=== PATIENT | female | born 1945 | race Caucasian/White ===

== ENCOUNTER 2019-05-22 17:39 | Inpatient (IN) ==
[2019-05-22] MEDS ORDERED: 0.9 % Sodium Chloride 1,000 ML IVC ONE (17:50)
[2019-05-22] MEDS ORDERED: levoFLOXacin 250 MG TABLET PO ONE (17:50)
[2019-05-22] MEDS ORDERED: methylPREDNISolone 125 MG/2 ML VIAL IVP ONE (17:50)
[2019-05-22] MEDS ORDERED: Ipratropium/Albuterol Neb 3 ML IH ONE (17:50)
[2019-05-22 18:35] LABS: INR 1.3; Prothrombin Time 14.6 Seconds (9.4-12.1)
[2019-05-22 18:38] LABS: Activated Partial Thrombo Time 28.1 Seconds (26.0-36.0)
[2019-05-22 18:47] LABS: Troponin I < 0.03 ng/mL (< 0.04)
[2019-05-22 18:53] LABS: Basophils % 0.7 %; Eosinophils % 0.4 %; Hematocrit 33.1 % (35.3-44.9); Hemoglobin 10.7 g/dL (11.5-15.4); Immature Granulocytes % 1.5 % (0-4); Lymphocytes # 0.7 K/mcL (0.6-4.6); Lymphocytes % 25.8 %; Mean Corpuscular HGB Conc 32.3 g/dL (31.6-35.5); Mean Corpuscular Hemoglobin 30.2 pg (28.0-33.3); Mean Corpuscular Volume 93.5 fL (83.0-100.0); Monocytes # 0.3 K/mcL (0.0-1.3); Monocytes % 12.7 %; Neutrophils # 1.6 K/mcL (1.6-8.9); Red Blood Count 3.54 M/mcL (3.82-4.97); Red Cell Distribution Width 17.5 % (11.5-14.5); Segmented Neutrophils % 58.9 %; White Blood Count 2.7 K/mcL (4.3-11.1)
[2019-05-22 18:54] LABS: Platelet Count 78 K/mcL (140-400)
[2019-05-22 19:09] LABS: Alanine Aminotransferase 13 Units/L (7-52); Albumin 3.7 g/dL (3.5-5.7); Alkaline Phosphatase 38 Units/L (34-104); Aspartate Amino Transferase 17 Units/L (13-39); BUN/Creatinine Ratio 19 (6-26); Bilirubin,Direct 0.1 mg/dL (0.0-0.2); Bilirubin,Indirect 0.6 mg/dL (0.0-1.0); Bilirubin,Total 0.7 mg/dL (0.3-1.0); Blood Urea Nitrogen 33 mg/dL (8-23); Calcium 9.4 mg/dL (8.6-10.3); Carbon Dioxide 22 mEq/L (23-29); Chloride 95 mEq/L (98-107); Globulin 3.6 g/dL (2.4-3.5); Glucose 346 mg/dL (70-105); Osmolality,Calculated 291 (280-300); Potassium 4.3 mEq/L (3.5-5.1); Sodium 130 mEq/L (136-145); Total Protein 7.3 g/dL (6.4-8.9); eGFR For African Americans 35 (> 60); eGFR For Non-African Americans 29 (> 60)
[2019-05-22 19:13] LABS: Bilirubin,Urine Negative (Negative); Blood,Urine Moderate (Negative); Clarity,Urine Clear (Clear); Color,Urine Yellow (Yellow); Glucose,Urine (UA) 500 mg/dL (Normal); Ketones,Urine 15 mg/dL (Negative); Leukocyte Esterase,Urine Small (Negative); Nitrite,Urine Positive (Negative); PH,Urine 5.5 pH Units (5.0-8.0); Protein,Urine >=300 mg/dL (Neg-Trace); Specific Gravity,Urine 1.025 (1.010-1.025); Urobilinogen,Urine Normal (Normal)
[2019-05-22 19:25] LABS: WBC,Urine TNTC per hpf (0-3)
[2019-05-22 19:26] LABS: Bacteria,Urine Moderate per hpf (None-Few); RBC,Urine Present per hpf (0-3)
[2019-05-22] MEDS ORDERED: cefTRIAXone 2,000 MG in 0.9 % Sodium Chloride Mini Bag 100 ML IVPB ONE (19:33)
[2019-05-22] MEDS ORDERED: Ondansetron ODT 4 MG TAB.RAPDIS SL PRN (21:03)
[2019-05-22] MEDS ORDERED: Naloxone 0.4 MG/ML INJ IVP PRN (21:03)
[2019-05-22] MEDS ORDERED: Ondansetron 4 MG/2 ML VIAL IVP PRN (21:03)
[2019-05-22] MEDS ORDERED: D5% in Water 1,000 ML IVC PRN ×2 (21:03→23:09)
[2019-05-22] MEDS ORDERED: Albuterol 2.5 MG/3 ML NEBULIZER IH PRN (21:03)
[2019-05-22] MEDS ORDERED: MOM Conc 10 ML UD.LIQ PO PRN (21:03)
[2019-05-22] MEDS ORDERED: Mag Hydrox/Al Hydrox/Simeth 30 ML UDC PO PRN (21:03)
[2019-05-22] MEDS ORDERED: *HR* Dextrose 50 % in Water (Syg) 50 ML SYRINGE IVP PRN (21:03)
[2019-05-22] MEDS ORDERED: Dextrose Gel 15 GM/37.5 ML TUBE PO PRN ×4 (21:03→23:09)
[2019-05-22] MEDS: 0.9 % Sodium Chloride 1,000 ML IVC SCH (21:43)
[2019-05-22] MEDS: Ipratropium/Albuterol Neb 3 ML IH SCH (22:52)
[2019-05-22] MEDS: Insulin LISPRO 300 UNITS/3 ML VIAL SQ SCH (23:29)
[2019-05-22] MEDS ORDERED: Insulin DETEMIR 100 UNIT/ML per UNIT SQ ONE ×2 (23:30)
[2019-05-23] MEDS: Ipratropium/Albuterol Neb 3 ML IH SCH ×2 (03:56→10:48)
[2019-05-23] MEDS: 0.9 % Sodium Chloride 1,000 ML IVC SCH (05:48)
[2019-05-23] MEDS: Insulin LISPRO 300 UNITS/3 ML VIAL SQ SCH ×5 (08:28→20:02)
[2019-05-23] MEDS ORDERED: Ipratropium/Albuterol Neb 3 ML IH PRN (11:00)
[2019-05-23] MEDS ORDERED: *HR* Dextrose 50 % in Water (Vial) 50 ML VIAL IVP PRN (12:50)
[2019-05-23] MEDS ORDERED: tiZANidine 4 MG TABLET PO PRN (13:26)
[2019-05-23 16:36] LABS: Adenovirus F 40/41 PCR Not detected (Not detect); Astrovirus PCR Not detected (Not detect); Campylobacter by PCR Not detected (Not detect); Cryptosporidium by PCR Not detected (Not detect); Cyclospora cayetanensis PCR Not detected (Not detect); E. coli O157 by PCR Not detected (Not detect); Entamoeba histolytica PCR Not detected (Not detect); Enteroaggregative E.coli(EAEC) Not detected (Not detect); Enteropathogenic E.coli(EPEC) Not detected (Not detect); Enterotoxigenic E.coli (ETEC) Not detected (Not detect); Giardia lamblia PCR Not detected (Not detect); Norovirus GI/GII PCR Not detected (Not detect); Plesiomonas shigelloides PCR Not detected (Not detect); Rotavirus A PCR Not detected (Not detect); Salmonella PCR Not detected (Not detect); Sapovirus PCR Not detected (Not detect); Shig/EnteroinvasiveE coli EIEC Not detected (Not detect); Shigalike tox-prod E coli STEC Not detected (Not detect); Vibrio PCR Not detected (Not detect); Vibrio cholerae PCR Not detected (Not detect); Yersinia enterocolitica PCR Not detected (Not detect)
[2019-05-23 16:38] LABS: C.difficile Toxin A/B Gene PCR DETECTED (Not detect)
[2019-05-23] MEDS: *HR* Heparin 5,000 UNIT/ML VIAL SQ SCH ×2 (17:09→21:49)
[2019-05-23] MEDS: levoFLOXacin 500 MG/100 ML 500 MG/100 ML BAG IVPB SCH (17:10)
[2019-05-23] MEDS: Cholecalciferol (D-3) 1,000 UNIT (25MCG) TABLET PO SCH (17:10)
[2019-05-23] MEDS: REVLIMID 5 MG PO SCH (19:03)
[2019-05-23 19:05] LABS: Acinetobacter baumannii by PCR Not Detected (Not Detect); Candida albicans by PCR Not Detected (Not Detect); Candida glabrata by PCR Not Detected (Not Detect); Enterobacter cloacae Cmplx PCR Not Detected (Not Detect); Enterobacteriaceae by PCR DETECTED (Not Detect); Enterococcus by PCR Not Detected (Not Detect); Escherichia coli by PCR DETECTED (Not Detect); Klebsiella oxytoca by PCR Not Detected (Not Detect); Klebsiella pneumoniae by PCR Not Detected (Not Detect); Proteus by PCR Not Detected (Not Detect); Pseudomonas aeruginosa by PCR Not Detected (Not Detect); Serratia marcescens by PCR Not Detected (Not Detect); Staphylococcus aureus by PCR Not Detected (Not Detect); Staphylococcus by PCR Not Detected (Not Detect); Streptococcus agalactiae(B)PCR Not Detected (Not Detect); Streptococcus by PCR Not Detected (Not Detect); Streptococcus pneumoniae PCR Not Detected (Not Detect); Streptococcus pyogenes (A) PCR Not Detected (Not Detect); blaKPC Carbapenem-Resist Gene Not Detected (Not Detect)
[2019-05-23 19:06] LABS: Candida krusei by PCR Not Detected (Not Detect); Candida parapsilosis by PCR Not Detected (Not Detect); Candida tropicalis by PCR Not Detected (Not Detect)
[2019-05-23] MEDS: Insulin DETEMIR 100 UNIT/ML X5UNITS SQ SCH (20:02)
[2019-05-23] MEDS: Gabapentin 100 MG CAPSULE PO SCH (20:02)
[2019-05-23] MEDS ORDERED: INSULIN DEGLUDEC 38 UNIT SQ SCH (21:00)
[2019-05-23] MEDS ORDERED: Insulin DETEMIR 100 UNIT/ML X5UNITS SQ SCH (21:00)
[2019-05-23] MEDS: Vancomycin Oral Soln 125 MG/2.5 ML UDC PO SCH (21:49)
[2019-05-23] MEDS: Acetaminophen 325 MG TABLET PO PRN (23:11)
[2019-05-24] MEDS: *HR* Heparin 5,000 UNIT/ML VIAL SQ SCH ×3 (05:22→21:37)
[2019-05-24] MEDS: Insulin LISPRO 300 UNITS/3 ML VIAL SQ SCH ×7 (08:22→21:38)
[2019-05-24] MEDS: Vancomycin Oral Soln 125 MG/2.5 ML UDC PO SCH ×4 (08:22→21:36)
[2019-05-24] MEDS: Cholecalciferol (D-3) 1,000 UNIT (25MCG) TABLET PO SCH (08:22)
[2019-05-24 08:51] LABS: Eosinophils # 0.1 K/mcL (0.0-0.6); Hematocrit 31.9 % (35.3-44.9); Hemoglobin 10.4 g/dL (11.5-15.4); Lymphocytes # 0.6 K/mcL (0.6-4.6); Mean Corpuscular HGB Conc 32.6 g/dL (31.6-35.5); Mean Corpuscular Hemoglobin 29.8 pg (28.0-33.3); Mean Corpuscular Volume 91.4 fL (83.0-100.0); Red Blood Count 3.49 M/mcL (3.82-4.97); Red Cell Distribution Width 17.2 % (11.5-14.5); White Blood Count 2.9 K/mcL (4.3-11.1)
[2019-05-24 08:52] LABS: Platelet Count 72 K/mcL (140-400)
[2019-05-24] MEDS ORDERED: REVLIMID 5 MG PO SCH (09:00)
[2019-05-24 09:02] LABS: Calcium 9.2 mg/dL (8.6-10.3); Potassium 3.6 mEq/L (3.5-5.1)
[2019-05-24 09:13] LABS: Anisocytosis 1+ (Not Present); Dohle Bodies Present (Not Present); Monocytes # 0.4 K/mcL (0.0-1.3); Neutrophils # 1.7 K/mcL (1.6-8.9); Platelet Estimate Slight Decrease (Normal); Polychromasia 1+ (Not Present); Reactive Lymphocytes Present (Not Present); Toxic Granulation Present (Not Present); Toxic Vacuolation Present (Not Present)
[2019-05-24] MEDS: 0.9 % Sodium Chloride 1,000 ML IVC SCH ×2 (09:46→22:42)
[2019-05-24] MEDS: Insulin DETEMIR 100 UNIT/ML X5UNITS SQ SCH ×2 (12:07→21:43)
[2019-05-24] MEDS: REVLIMID 5 MG PO SCH (19:50)
[2019-05-24] MEDS: Gabapentin 100 MG CAPSULE PO SCH (21:37)
[2019-05-25] MEDS: *HR* Heparin 5,000 UNIT/ML VIAL SQ SCH ×3 (06:27→22:15)
[2019-05-25] MEDS: Insulin LISPRO 300 UNITS/3 ML VIAL SQ SCH ×7 (09:23→22:24)
[2019-05-25] MEDS: Acetaminophen 325 MG TABLET PO PRN (09:31)
[2019-05-25] MEDS: Cholecalciferol (D-3) 1,000 UNIT (25MCG) TABLET PO SCH (09:31)
[2019-05-25] MEDS: Vancomycin Oral Soln 125 MG/2.5 ML UDC PO SCH ×4 (09:31→22:12)
[2019-05-25] MEDS: Insulin DETEMIR 100 UNIT/ML X5UNITS SQ SCH ×2 (09:32→22:15)
[2019-05-25] MEDS: 0.9 % Sodium Chloride 1,000 ML IVC SCH (12:49)
[2019-05-25] MEDS: levoFLOXacin 500 MG/100 ML 500 MG/100 ML BAG IVPB SCH (15:43)
[2019-05-25] MEDS: REVLIMID 5 MG PO SCH (19:31)
[2019-05-25] MEDS: Gabapentin 100 MG CAPSULE PO SCH (22:14)
[2019-05-26] MEDS: *HR* Heparin 5,000 UNIT/ML VIAL SQ SCH (05:18)
[2019-05-26] MEDS: 0.9 % Sodium Chloride 1,000 ML IVC SCH (05:18)
[2019-05-26] MEDS: Vancomycin Oral Soln 125 MG/2.5 ML UDC PO SCH ×4 (09:26→20:43)
[2019-05-26] MEDS: Insulin DETEMIR 100 UNIT/ML X5UNITS SQ SCH ×2 (09:26→20:43)
[2019-05-26] MEDS: Cholecalciferol (D-3) 1,000 UNIT (25MCG) TABLET PO SCH (09:26)
[2019-05-26] MEDS: Insulin LISPRO 300 UNITS/3 ML VIAL SQ SCH ×7 (09:27→20:44)
[2019-05-26 12:53] LABS: BUN/Creatinine Ratio 14 (6-26); Blood Urea Nitrogen 14 mg/dL (8-23); Calcium 8.4 mg/dL (8.6-10.3); Carbon Dioxide 24 mEq/L (23-29); Chloride 107 mEq/L (98-107); Glucose 125 mg/dL (70-105); Osmolality,Calculated 288 (280-300); Potassium 3.6 mEq/L (3.5-5.1); Sodium 138 mEq/L (136-145); eGFR For African Americans > 60 (> 60); eGFR For Non-African Americans 57 (> 60)
[2019-05-26 13:18] LABS: Hematocrit 27.8 % (35.3-44.9); Hemoglobin 9.3 g/dL (11.5-15.4); Mean Corpuscular HGB Conc 33.5 g/dL (31.6-35.5); Mean Corpuscular Hemoglobin 30.2 pg (28.0-33.3); Mean Corpuscular Volume 90.3 fL (83.0-100.0); Red Blood Count 3.08 M/mcL (3.82-4.97); Red Cell Distribution Width 17.1 % (11.5-14.5); White Blood Count 2.2 K/mcL (4.3-11.1)
[2019-05-26 13:31] LABS: Platelet Count 55 K/mcL (140-400)
[2019-05-26] MEDS: REVLIMID 5 MG PO SCH (19:04)
[2019-05-26] MEDS: Gabapentin 100 MG CAPSULE PO SCH (20:41)
[2019-05-27 06:42] LABS: Hematocrit 26.3 % (35.3-44.9); Hemoglobin 8.6 g/dL (11.5-15.4); Mean Corpuscular HGB Conc 32.7 g/dL (31.6-35.5); Mean Corpuscular Volume 91.6 fL (83.0-100.0); Red Blood Count 2.87 M/mcL (3.82-4.97); Red Cell Distribution Width 17.1 % (11.5-14.5)
[2019-05-27 06:45] LABS: Platelet Count 42 K/mcL (140-400)
[2019-05-27] MEDS: Insulin LISPRO 300 UNITS/3 ML VIAL SQ SCH ×4 (09:12→12:27)
[2019-05-27] MEDS: Cholecalciferol (D-3) 1,000 UNIT (25MCG) TABLET PO SCH (09:20)
[2019-05-27] MEDS: Insulin DETEMIR 100 UNIT/ML X5UNITS SQ SCH (09:20)
[2019-05-27] MEDS: Vancomycin Oral Soln 125 MG/2.5 ML UDC PO SCH ×2 (09:20→12:28)
[2019-05-27 11:28] VITALS: BP 122/55
== END 2019-05-27 14:09 | disposition home or self-care (01) | DRG 191 ==
LOC: INPPIK 17:39 → EMEROOPIK 17:39 → INPPIK 20:32
PROVIDERS: ADMIT Family Medicine; ATTEND Family Medicine

== ENCOUNTER 2019-08-14 13:09 | Inpatient (IN) ==
[2019-08-14 13:51] LABS: Basophils % 0.4 %; Eosinophils % 0.4 %; Hematocrit 29.2 % (35.3-44.9); Hemoglobin 9.1 g/dL (11.5-15.4); Immature Granulocytes % 0.7 % (0-4); Lymphocytes # 0.6 K/mcL (0.6-4.6); Lymphocytes % 23.2 %; Mean Corpuscular HGB Conc 31.2 g/dL (31.6-35.5); Mean Corpuscular Hemoglobin 28.1 pg (28.0-33.3); Mean Corpuscular Volume 90.1 fL (83.0-100.0); Monocytes # 0.2 K/mcL (0.0-1.3); Monocytes % 8.1 %; Neutrophils # 1.8 K/mcL (1.6-8.9); Red Blood Count 3.24 M/mcL (3.82-4.97); Red Cell Distribution Width 18.6 % (11.5-14.5); Segmented Neutrophils % 67.2 %; White Blood Count 2.7 K/mcL (4.3-11.1)
[2019-08-14 13:53] LABS: Platelet Count 66 K/mcL (140-400)
[2019-08-14 14:05] LABS: Albumin 3.5 g/dL (3.5-5.7); Bilirubin,Direct 0.1 mg/dL (0.0-0.2); Bilirubin,Indirect 0.6 mg/dL (0.0-1.0); Bilirubin,Total 0.7 mg/dL (0.3-1.0); Calcium 8.7 mg/dL (8.6-10.3); Globulin 3.5 g/dL (2.4-3.5); Potassium 4.1 mEq/L (3.5-5.1)
[2019-08-14] MEDS ORDERED: Azithromycin 500 MG in 0.9 % Sodium Chloride 250 ML IVPB ONE (14:28)
[2019-08-14] MEDS ORDERED: cefTRIAXone 2,000 MG in 0.9 % Sodium Chloride Mini Bag 100 ML IVPB ONE (14:28)
[2019-08-14] MEDS: 0.9 % Sodium Chloride 1,000 ML IVC SCH ×2 (14:56→23:21)
[2019-08-14] MEDS ORDERED: Mag Hydrox/Al Hydrox/Simeth 30 ML UDC PO PRN (15:54)
[2019-08-14] MEDS ORDERED: Naloxone 0.4 MG/ML INJ IVP PRN (15:54)
[2019-08-14] MEDS ORDERED: Ondansetron ODT 4 MG TAB.RAPDIS SL PRN (15:54)
[2019-08-14] MEDS ORDERED: Ipratropium/Albuterol Neb 3 ML IH PRN (17:02)
[2019-08-14] MEDS ORDERED: *HR* HYDROcodone/Acet 5/325 mg TABLET PO PRN (17:04)
[2019-08-14] MEDS ORDERED: *HR* Dextrose 50 % in Water (Vial) 50 ML VIAL IVP PRN (17:10)
[2019-08-14] MEDS ORDERED: D5% in Water 1,000 ML IVC PRN (17:10)
[2019-08-14] MEDS ORDERED: Dextrose Gel 15 GM/37.5 ML TUBE PO PRN ×2 (17:10)
[2019-08-14] MEDS ORDERED: Insulin DETEMIR 100 UNIT/ML X5UNITS SQ SCH (21:00)
[2019-08-14] MEDS ORDERED: Insulin LISPRO 300 UNITS/3 ML VIAL SQ SCH (21:00)
[2019-08-14] MEDS ORDERED: Gabapentin 300 MG CAPSULE PO SCH (21:00)
[2019-08-14] MEDS: tiZANidine 4 MG TABLET PO SCH (21:11)
[2019-08-14 22:57] LABS: Estimated Average Glucose 200 mg/dl
[2019-08-14 23:42] LABS: Adenovirus Not Detected (Not Detect); Bordetella Pertussis Not Detected (Not Detect); Chlamydophila pneumoniae Not Detected (Not Detect); Coronavirus 229E Not Detected (Not Detect); Coronavirus HKU1 Not Detected (Not Detect); Coronavirus NL63 Not Detected (Not Detect); Coronavirus OC43 Not Detected (Not Detect); Human Metapneumovirus Not Detected (Not Detect); Human Rhinovirus/Enterovirus DETECTED (Not Detect); Influenza A Subtype 2009 H1 Not Detected (Not Detect); Influenza B Not Detected (Not Detect); Mycoplasma pneumoniae Not Detected (Not Detect); Parainfluenza Virus 1 Not Detected (Not Detect); Parainfluenza Virus 2 Not Detected (Not Detect); Parainfluenza Virus 3 Not Detected (Not Detect); Parainfluenza Virus 4 Not Detected (Not Detect); Respiratory Syncytial Virus Not Detected (Not Detect)
[2019-08-15] MEDS: 0.9 % Sodium Chloride 1,000 ML IVC SCH ×3 (03:23→08:07)
[2019-08-15] MEDS ORDERED: Acetaminophen 325 MG TABLET PO PRN (05:37)
[2019-08-15 07:38] LABS: Hematocrit 23.9 % (35.3-44.9); Hemoglobin 7.5 g/dL (11.5-15.4); Mean Corpuscular HGB Conc 31.4 g/dL (31.6-35.5); Mean Corpuscular Hemoglobin 28.5 pg (28.0-33.3); Mean Corpuscular Volume 90.9 fL (83.0-100.0); Red Blood Count 2.63 M/mcL (3.82-4.97); Red Cell Distribution Width 18.7 % (11.5-14.5); White Blood Count 1.9 K/mcL (4.3-11.1)
[2019-08-15 07:56] LABS: Calcium 7.9 mg/dL (8.6-10.3); Potassium 3.7 mEq/L (3.5-5.1)
[2019-08-15 08:06] LABS: Platelet Count 47 K/mcL (140-400)
[2019-08-15] MEDS: Insulin LISPRO 300 UNITS/3 ML VIAL SQ SCH ×3 (08:10→16:25)
[2019-08-15] MEDS: tiZANidine 4 MG TABLET PO SCH (08:10)
[2019-08-15] MEDS ORDERED: Lenalidomide [Revlimid] 5 MG PO SCH (09:00)
[2019-08-15] MEDS ORDERED: Cholecalciferol (D-3) 1,000 UNIT (25MCG) TABLET PO SCH (09:00)
[2019-08-15] MEDS ORDERED: 0.9 % Sodium Chloride 1,000 ML IV ONE ×2 (09:14→20:55)
[2019-08-15] MEDS ORDERED: Azithromycin 500 MG in 0.9 % Sodium Chloride 250 ML IVPB SCH (15:00)
[2019-08-15] MEDS ORDERED: cefTRIAXone 2,000 MG in Water for inj. (sterile) 20 ML IVP SCH (15:00)
[2019-08-15 15:17] LABS: Bilirubin,Urine Negative (Negative); Blood,Urine Moderate (Negative); Clarity,Urine Clear (Clear); Color,Urine Yellow (Yellow); Glucose,Urine (UA) 500 mg/dL (Normal); Ketones,Urine Negative (Negative); Leukocyte Esterase,Urine Small (Negative); Nitrite,Urine Negative (Negative); PH,Urine 5.5 pH Units (5.0-8.0); Protein,Urine 100 mg/dL (Neg-Trace); Specific Gravity,Urine 1.015 (1.010-1.025); Urobilinogen,Urine Normal (Normal)
[2019-08-15 15:28] LABS: Squamous Epithelial Cell,Urine Few per lpf (None-Few); Transitional Epi Cells,Urine Few per hpf (None-Few); WBC,Urine 30-50 per hpf (0-3)
[2019-08-15 15:29] LABS: Amorphous Sediment,Urine Few per hpf (Few); Bacteria,Urine Moderate per hpf (None-Few); Hyaline Casts,Urine Few per lpf (None-Few); Mucus,Urine Few per lpf (Few)
[2019-08-15 19:38] VITALS: BP 87/47
[2019-08-15 20:45] LABS: Acinetobacter baumannii by PCR Not Detected (Not Detect); Candida albicans by PCR Not Detected (Not Detect); Candida glabrata by PCR Not Detected (Not Detect); Candida krusei by PCR Not Detected (Not Detect); Candida parapsilosis by PCR Not Detected (Not Detect); Candida tropicalis by PCR Not Detected (Not Detect); Enterobacter cloacae Cmplx PCR Not Detected (Not Detect); Enterococcus by PCR Not Detected (Not Detect); Escherichia coli by PCR DETECTED (Not Detect); Klebsiella oxytoca by PCR Not Detected (Not Detect); Klebsiella pneumoniae by PCR Not Detected (Not Detect); Proteus by PCR Not Detected (Not Detect); Pseudomonas aeruginosa by PCR Not Detected (Not Detect); Serratia marcescens by PCR Not Detected (Not Detect); Staphylococcus aureus by PCR Not Detected (Not Detect); Staphylococcus by PCR Not Detected (Not Detect); Streptococcus agalactiae(B)PCR Not Detected (Not Detect); Streptococcus by PCR Not Detected (Not Detect); Streptococcus pneumoniae PCR Not Detected (Not Detect); Streptococcus pyogenes (A) PCR Not Detected (Not Detect); blaKPC Carbapenem-Resist Gene Not Detected (Not Detect); mecA Methicillin-Resist Gene Not Detected (Not Detect); vanA/B Vancomycin-Resist Genes Not Detected (Not Detect)
[2019-08-16] MEDS ORDERED: *HR* Enoxaparin 30 MG/0.3 ML SYRINGE SQ SCH (06:00)
[2019-08-18 07:01] LABS: Mycoplasma pneumoniae IgG 0.1 U/L (<=0.09)
== END 2019-08-15 22:00 | disposition short-term general hospital (02) | DRG 871 ==
LOC: EMEROOPIK 13:09 → INPPIK 13:09
PROVIDERS: ADMIT Family Medicine; ATTEND Family Medicine